=== PATIENT | male | born 1940 ===

== ENCOUNTER 2018-02-26 06:33 | Day surgery (SDC) | payer MEDICARE ==
[2016-10-26 10:33] VITALS: BMI 26.4
[2018-02-26 07:16] LABS: BLOOD UREA NITROGEN 11 mg/dL (7-21); CALCIUM 9.2 mg/dL (8.4-10.5); GFR AFRICAN-AMERICAN > 60; GFR NON-AFRICAN AMERICAN > 60; HDL CHOLESTEROL 35 mg/dL (29-60)
[2018-02-26 07:17] VITALS: RESP 18
[2018-02-26 07:28] LABS: BASO # 0.03 K/mm3 (0.0-2.0); BASO % 0.6 % (0.0-3.0); EOS # 0.2 (0.0-0.7); EOS % 3.3 % (1.5-5.0); GRAN # 2.44 (1.4-6.5); GRAN % 50.2 % (50.0-68.0); LDL CHOLESTEROL 51 mg/dL (0-129); LYMPH # 1.7 (1.2-3.4); LYMPH % 34.6 % (22.0-35.0); MEAN CORPUSCULAR HEMOGLOBIN 28.3 pg (25.0-35.0); MEAN CORPUSCULAR HGB CONC 32.9 g/dl (31.0-37.0); MEAN PLATELET VOLUME 10.4 fl (7.0-11.0); MONO # 0.6 (0.1-0.6); MONO % 11.3 % (1.0-6.0); RBC 4.94 10^6/uL (3.5-6.1); WHITE BLOOD COUNT 4.9 10^3/ul (4.5-11.0)
[2018-02-26 07:40] LABS: INR 1.04 (0.93-1.08); PARTIAL THROMBOPLASTIN TIME 27.9 Seconds (25.1-36.5)
[2018-02-26] MEDS ORDERED: Midazolam 2 MG/2 ML VIAL ONE ×2 (07:46→08:05)
[2018-02-26] MEDS ORDERED: Lidocaine 2% Inj (20ml) ONE (07:47)
[2018-02-26] MEDS ORDERED: Iohexol 350mgl/ml 50 ML ONE (07:48)
[2018-02-26] MEDS ORDERED: Phenylephrine 10 mg/ml Inj ONE (07:48)
[2018-02-26] MEDS ORDERED: Iodixanol 320 MG/ML 100 ML BOTTLE IV ONE (07:48)
[2018-02-26] MEDS ORDERED: Nitroglycerin 50mg in D5W 50 MG/250 ML BOTTLE IV ONE (07:48)
[2018-02-26] MEDS ORDERED: Iodixanol 320 MG/ML 200 ML BOTTLE IV ONE (07:48)
[2018-02-26] MEDS ORDERED: Sodium Chloride 0.9% 1,000 ML IV SCH (09:00)
[2018-02-26 09:26] VITALS: TEMP 97.6
--- NOTE | 2018-02-26 09:40 | CARDCATH ---
PROCEDURE DATE: 02/26/2018 HISTORY: The patient is a 77-year-old male with a history of hypertension and hypercholesterolemia who presents with angina. Stress test was abnormal. The patient has had a stent in the LAD in the past as well as a documented 50% stenoses in the past. He presents with an abnormal stress test. A cardiac catheterization was recommended. The right femoral artery was cannulated with 6-Bahamian sheath. There were no complications. I performed moderate sedation which included the presence of an independent trained observer that assisted in monitoring the patient's level of consciousness and physiologic status. After administration of Versed and fentanyl, my intra service time was 30 minutes. The findings on catheterization revealed a left main artery that revealed an eccentric 80% stenoses in the ostium of the left main artery. The midportion of the LAD revealed a 50% stenoses. The circumflex artery and obtuse marginal branches were free of significant disease. The right coronary artery which was a codominant vessel revealed a 50% stenosis in its proximal portion and a 60% stenosis in the midportion. LV function was viewed in the PÉREZ projection. The PÉREZ projection, wall motion is within normal limits. IVUS was performed of the ostium of the left main artery. IVUS revealed a 70% eccentric stenoses in the ostium of the left main artery. The Angio-Seal was used to close the femoral artery site. The patient tolerated the procedure well. In summary, the procedure revealed 70-80% ostial stenosis of the left main artery. There is a 50% stenosis in the mid LAD and two borderline critical lesions in the RCA. LV function is normal. Given these findings, the patient's treatment should be coronary artery bypass surgery. I have contacted the surgeons in [facility] to review the case. The patient's family has asked for other options, which I have discussed, possible stenting of the left main after review with the cardiac surgeons. Srikanth Krishna MD
--- NOTE | 2018-02-26 09:51 | CARD ---
APPROVED REPORT EKG Measurement Heart [id number] <Conclusion> Normal sinus rhythm Normal ECG No change
[2018-02-26 13:23] VITALS: O2SAT 97
[2018-02-26 14:23] VITALS: BP 146/59; PULSE 59
== END 2018-02-26 15:50 | disposition home or self-care (01) ==
LOC: CATH 06:33
PROVIDERS: ATTEND Internal Medicine Cardiovascular Disease
DX: I25.118 Atherosclerotic heart disease of native coronary artery with other forms of angina pectoris (principal); E78.00 Pure hypercholesterolemia, unspecified; I10 Essential (primary) hypertension; H40.9 Unspecified glaucoma
CPT/HCPCS: 36415; 80048; 80061; 82139; 85025; 85610; 85730; 86850; 86900; 92978; 93005; 93458; 99152; 99153; C1753; C1760; C1769 ×2; C1887 ×2; C2629; J0583; J1644; J2250; J3010; J7030; J7040; Q9966; Q9967